=== PATIENT | female | born 1985 | race Caucasian/White ===

== ENCOUNTER 2020-01-19 21:13 | Emergency (ER) | payer OTHER ==
[~2020-01-19] VITALS: Ht 177.8 cm; Wt 91.6 kg
[2020-01-19 21:20] VITALS: BP 152/88
--- NOTE | 2020-01-19 21:30 | NUR ---
pt ambulated to bed 05 with steady gait.
[2020-01-19] MEDS: IBUPROFEN 800 MG TAB PO ONE (21:35)
--- NOTE | 2020-01-19 21:40 | NUR ---
34 year old female c/o R ELBOW PAIN POST FALL 20 MIN AGO ON SKATEBOARD. HEARD A "POP" WHEN FALLING. DENIES TAKING OTC MEDS NKA NO MED HX NO RX
[2020-01-19] MEDS: MORPHINE SULFATE 4 MG/ML SYR IVP ONE (22:12)
--- NOTE | 2020-01-19 22:22 | NUR ---
PTS RIGHT ARM WAS PLACED IN A SHOULDER IMOBOLIZER. [facility].
[2020-01-19 23:17] VITALS: BP 152/88
== END 2020-01-19 23:02 | disposition home or self-care (01) ==
LOC: MED 21:13
DX: S53.104A Unspecified dislocation of right ulnohumeral joint, initial encounter (principal); X58.XXXA Exposure to other specified factors, initial encounter; Y93.51 Activity, roller skating (inline) and skateboarding; Y92.89 Other specified places as the place of occurrence of the external cause; Y99.8 Other external cause status
CPT/HCPCS: 24600; 73070; 73080; 96374; 99284; J2270